=== PATIENT | female | born 1995 | race Caucasian/White ===

== ENCOUNTER 2023-01-28 15:37 | Inpatient (IN) | payer OTHER ==
--- NOTE | 2023-01-24 09:28 | P.HPOB ---
History of Present Illness H&P Date: 01/24/23 Chief Complaint: Induction secondary to chronic hypertension and diabetes This patient is a pleasant 28-year-old 1 para 0 female estimated date of confinement 02/03/2023 estimated gestational age 39 and one sevenths weeks who presents to labor and delivery for two-stage induction of labor secondary to insulin-dependent gestational diabetes and chronic hypertension. Patient's care has been complicated by diabetes and hypertension. She's been followed with maternal- medicine for Glucola regulation. I did place her on labetalol at approximately 13 weeks and she's had good control since that time. She's had testing and serial ultrasounds. Per recommendations plan now is to proceed with delivery. care is also complicated by maternal obesity. Review of Systems Genitourinary: Reports Menstruation: Reports amenorrhea Past Medical History Past Medical History: Hypertension Additional Past Medical History / Comment(s): Gestational diabetes and chronic hypertension. Polycystic ovary syndrome. Morbid obesity History of Any Multi-Drug Resistant Organisms: None Reported Past Surgical History: No Surgical Hx Reported Past Anesthesia/Blood Transfusion Reactions: No Reported Reaction Past Psychological History: Anxiety Smoking Status: Never smoker Past Alcohol Use History: None Reported Past Drug Use History: None Reported Medications and Allergies Home Medications Medication Instructions Recorded Confirmed Type Aspirin 81 mg PO DAILY 01/21/23 01/21/23 History Insulin Glargine [Lantus Vial] 25 unit SQ HS 01/21/23 01/21/23 History Labetalol [Trandate] 100 mg PO BID 01/21/23 01/21/23 History Vit No.179/Iron/Folic 1 each PO DAILY 01/21/23 01/21/23 History [ Tablet] Allergies Allergy/AdvReac Type Severity Reaction Status Date / Time No Known Allergies Allergy Verified 01/21/23 09:59 Exam - OBG Physical Exam Abdomen: bowel sounds normal, no diffuse tenderness, no bruit present, no guarding noted, no hepatomegaly, no splenomegaly, no mass Vulva: both: normal Vagina: normal moisture, no discharge Cervix: no lesion (Cervix in the office was closed and uneffaced), no discharge Uterus: enlarged Results labs show she is A negative, rubella immune, RPR nonreactive, HIV is nonreactive, hepatitis B and C were negative, group B strep was negative, Glucola was abnormal as well as her three-hour gtt. Most recent growth ultrasounds showed estimated weight of 7 lbs. 7 oz. Assessment and Plan Assessment: This is a pleasant 28-year-old 1 para 0 female 39 and one sevenths weeks gestation who presents to labor and delivery for two-stage induction of labor. Plan is Cervidil placement and induction of labor. Will monitor her blood glucoses closely during labor. Anticipate vaginal delivery. (1) 39 weeks gestation of Status: Acute Code(s): Z3A.39 - 39 WEEKS GESTATION OF SNOMED Code(s): 07611999 (2) Gestational diabetes Status: Acute Code(s): O24.419 - GESTATIONAL DIABETES MELLITUS IN , UNSP CONTROL SNOMED Code(s): 26221365 (3) Chronic hypertension Status: Acute Code(s): I10 - ESSENTIAL (PRIMARY) HYPERTENSION SNOMED Co de(s): 92331928 (4) Morbid obesity Status: Acute Code(s): E66.01 - MORBID (SEVERE) OBESITY DUE TO EXCESS CALORIES SNOMED Code(s): 033244817
[2023-01-28] MEDS ORDERED: DINOPROSTONE 10 MG INSERT.ER VAGINAL ONE (15:48)
[2023-01-28] MEDS ORDERED: NALBUPHINE 10 MG/ML (10 ML MDV) IV PRN (15:48)
[2023-01-28 20:45] LABS: Glucose,Whole Blood 104 mg/dL (70-110)
[2023-01-28] MEDS ORDERED: LABETALOL 100 MG TAB PO SCH (21:00)
[2023-01-29 03:46] LABS: Basophils % (A) 0 %; Eosinophils # (A) 0.2 k/uL (0-0.7); Eosinophils % (A) 1 %; HCT 37.1 % (34.0-46.0); HGB 12.5 gm/dL (11.4-16.0); Lymphocytes # (A) 2.1 k/uL (1.0-4.8); Lymphocytes % (A) 16 %; MCH 28.8 pg (25.0-35.0); MCHC 33.7 g/dL (31.0-37.0); MCV 85.5 fL (80.0-100.0); Mean Platelet Volume 9.7; Monocytes # (A) 0.6 k/uL (0-1.0); Monocytes % (A) 5 %; Neutrophils % (A) 76 %; Platelet Count 205 k/uL (150-450); RBC 4.34 m/uL (3.80-5.40); RDW 14.5 % (11.5-15.5); WBC 13.2 k/uL (3.8-10.6)
[2023-01-29] MEDS ORDERED: OXYTOCIN 10 UNIT/ML 1 ML VIAL IM PRN ×4 (05:48→11:19)
[2023-01-29] MEDS ORDERED: TERBUTALINE 1 MG/ML VIAL SQ PRN ×2 (05:48→07:36)
[2023-01-29] MEDS ORDERED: miSOPROStoL 200 MCG TAB PO PRN ×4 (05:48→11:19)
[2023-01-29] MEDS ORDERED: LACTATED RINGERS 1,000 ML IV SCH ×2 (05:48→07:45)
[2023-01-29] MEDS ORDERED: METHYLERGONOVINE 0.2 MG/ML 1 ML AMP IM PRN (05:48)
[2023-01-29] MEDS ORDERED: TRANEXAMIC 1,000 MG/100ML-NACL 1,000 MG in EMPTY BAG 1 BAG IV PRN ×4 (05:48→11:19)
[2023-01-29] MEDS ORDERED: OXYTOCIN 30 UNITS/500 ML NS 30 UNIT in SALINE 1 500ML.BAG IV SCH ×3 (05:48→13:15)
[2023-01-29] MEDS ORDERED: LIDOCAINE 0.5% (PF) 5 MG/ML (50 ML SDV) SQ PRN ×2 (05:48→07:36)
[2023-01-29] MEDS ORDERED: CARBOPROST TROMETHAMINE 250 MCG/ML 1 ML AMP IM PRN ×4 (05:48→11:19)
--- NOTE | 2023-01-29 06:28 | P.PN ---
Progress Note - Text Progress Note Date: 01/29/23 Patient was resting overnight. heart tones are category 1. Cervidil was removed this morning cervix is still closed and thick. I'm unable to proceed with artificial rupture membranes. Per discussion the office plan today is to proceed with delivery regardless due to the hypertension and gestational diabetes. Therefore, plan is to attempt Pitocin induction and if ineffective and then we plan to proceed with section for delivery later today. I discussed this clinical plan with the patient and her and we also discussed this in the office last week. They are agreeable we did discuss risks and benefits of section if necessary.
[2023-01-29 07:28] LABS: Glucose,Whole Blood 93 mg/dL (70-110)
[2023-01-29] MEDS ORDERED: CITRIC ACID-SODIUM CITRATE 15 ML CUP PO ONE ×2 (07:33→11:19)
[2023-01-29] MEDS ORDERED: ceFAZolin 3 GM in SODIUM CHLORIDE 0.9% 100 ML IVPB ONE ×2 (07:33→11:19)
[2023-01-29] MEDS ORDERED: LACTATED RINGERS 1,000 ML IV ONE (11:19)
[2023-01-29] MEDS ORDERED: ePHEDrine 50 MG/ML 1 ML VIAL ONE (12:13)
[2023-01-29] MEDS ORDERED: KETOROLAC 15 MG/ML 1 ML VIAL ONE (12:13)
[2023-01-29] MEDS ORDERED: ONDANSETRON 4 MG/2 ML VIAL ONE (12:13)
[2023-01-29] MEDS ORDERED: MORPHINE SULFATE (PF) 0.3 MG/0.3 ML SYR ONE (12:13)
[2023-01-29] MEDS ORDERED: OXYTOCIN 30 UNITS/500 ML NS BAG IV ONE (12:13)
[2023-01-29] MEDS ORDERED: NALBUPHINE 10 MG/ML (10 ML MDV) ONE (12:13)
[2023-01-29] MEDS ORDERED: SIMETHICONE 80 MG CHEWABLE PO PRN (13:04)
[2023-01-29] MEDS ORDERED: LANOLIN CREAM 5 GM TUBE TOPICAL PRN (13:04)
[2023-01-29] MEDS ORDERED: ZOLPIDEM 5 MG TAB PO PRN (13:04)
[2023-01-29] MEDS ORDERED: METOCLOPRAMIDE 5 MG/ML 2 ML VIAL IVP PRN (13:04)
[2023-01-29] MEDS ORDERED: NALOXONE 0.4 MG/ML 1 ML VIAL IV PRN (13:04)
[2023-01-29] MEDS ORDERED: diphenhydrAMINE 25 MG CAP PO PRN (13:04)
[2023-01-29] MEDS ORDERED: diphenhydrAMINE 50 MG/ML 1 ML VIAL IVP PRN (13:04)
[2023-01-29] MEDS ORDERED: ONDANSETRON 4 MG/2 ML VIAL IVP PRN (13:04)
[2023-01-29] MEDS: ACETAMINOPHEN TAB 500 MG TAB PO SCH (17:12)
--- NOTE | 2023-01-29 17:53 | P.OP ---
Date of Procedure: 01/29/23 Preoperative Diagnosis: #1: 39 and one sevenths week intrauterine . #2: Gestational diabetes. #3: Gestational hypertension/chronic hypertension. #4: Morbid obesity. #5: Failed induction of labor Postoperative Diagnosis: #1: Same. #2: macrosomia Procedure(s) Performed: Primary low transverse section Anesthesia: spinal Surgeon: Abrahan Good Returns Clerk #1: Alisha Vasquez Estimated Blood Loss (ml): 800 Pathology: other (Placenta) Condition: stable Disposition: floor Indications for Procedure: Please see dictated H&P for intimate details of this patient's admission. In brief summary this is a pleasant 28-year-old 1 para 0 female 39 and one sevenths weeks gestation who is admitted to labor and delivery for two-stage induction of labor secondary to insulin-dependent gestational diabetes, chronic hypertension and gestational hypertension. Patient was admitted last evening was about fingertip to 1 cm dilated has Cervidil placed. This was removed this morning and there was no significant cervical change. I was unable to proceed with artificial rupture of membranes. Patient was given Pitocin without any progression at that time, a patient centered well was done and after discussion we elected to proceed with primary section for delivery. Patient does understand this procedure and risks and risks of infection, bleeding, possible injury bowel, bladder, vessels, and other organs. All the patient's questions were answered and a written consent is obtained. Operative Findings: This is a vigorous viable male infant Apgars 8 and 9 delivery time is 1235 hrs. Infant's weight was 9 lbs. 7 oz. 4280 g. There is a nuchal cord 1. Description of Procedure: This patient has a Davidson catheter placed to straight drain. She is subsequently taken to the operating room where she is sat up and spinal anesthetic is administered without incident. With an adequate level of anesthesia she has the Pannas retractor placed and abdominal prep and drape. Appropriate timeout is done. Scalpel is then taken and a Pfannenstiel skin incision is made. A second scalpel is taken down the fascia and the fascia scored with a knife. Fascial incision is extended bilaterally using the Nguyen scissors. Fascia is then dissected off the rectus muscle separately. The peritoneum was identified and entered sharply. Peritoneal incision extended superior and inferior without difficulty. Bladder blade is then placed. The bladder peritoneum was then taken sharply off the lower uterine segment. Scalpels and taken a low transverse uterine incision is then made. Using a hemostat I into the uterine cavity bluntly and there is loss of a copious amount of clear fluid. Incision is then extended bluntly. 's head is then guided through the incision with fundal pressure. Mouth and nares are bulb suctioned. There is a nuchal cord which is loose and easily reduced. With more fundal pressure of delivery the rest this 's body. This is a vigorous viable female infant Apgars are 8 and 9 delivery time is 1235 hrs. After delivery of the the umbilical cord is doubly clamped and cut is handed off to the nurses in attendance. The placenta is then manually extracted intact. Uterus is then externalized and uterine incision demarcated with العلي clamps. Uterine incision then closed using 0 Vicryl running locked fashion 2 layers. Excellent hemostasis is noted. Excess fluid is removed from the abdomen and pelvis. The uterus, tubes, ovaries appear normal for term gestation. Uterus is placed back into the abdomen. Parietal peritoneum was then closed using 0 Vicryl running fashion. Rectus muscles reapproximated using 0 Vicryl interrupted fashion. Fascial incision is then closed using 0 PDS. Fascial incision is intact and hemostatic. Subcutaneous tissues and closed using a 3-0 Vicryl. Skin is and closed using liliam. All counts are correct 3. There are no complications. Infant and mother taken the birthing suite in satisfactory condition.
[2023-01-29] MEDS ORDERED: ceFAZolin 3 GM in SODIUM CHLORIDE 0.9% 100 ML IVPB SCH (20:00)
[2023-01-29] MEDS: SENNOSIDES-DOCUSATE SODIUM 1 EACH TAB PO SCH (20:12)
[2023-01-29] MEDS: KETOROLAC 15 MG/ML 1 ML VIAL IVP SCH (20:12)
[2023-01-29] MEDS: IBUPROFEN 600 MG TAB PO SCH (20:14)
[2023-01-29] MEDS ORDERED: Rhogam IMMUNE GLOBULIN 1,500 UNIT/1 ML IM ONE (21:45)
[2023-01-29] MEDS: LACTATED RINGERS 1,000 ML IV SCH (22:42)
[2023-01-30] MEDS: ACETAMINOPHEN TAB 500 MG TAB PO SCH ×4 (01:11→20:46)
[2023-01-30] MEDS: IBUPROFEN 600 MG TAB PO SCH ×3 (04:50→17:58)
--- NOTE | 2023-01-30 06:09 | P.PNOBGPC ---
Subjective - Subjective Patient reports: Reports appetite normal, Reports voiding normally, Reports pain well controlled, Reports ambulating normally : doing well Objective - Vital Signs Latest vital signs: Vital Signs Temp Pulse Resp BP Pulse Ox 01/30/23 04:00 97.8 F 91 16 113/76 97 01/30/23 00:00 97.5 F L 82 17 98/56 97 01/29/23 20:00 98.0 F 87 17 104/69 01/29/23 17:06 98.6 F 78 16 127/71 01/29/23 15:13 97.3 F L 80 16 116/59 98 01/29/23 14:35 80 18 121/60 99 01/29/23 14:05 79 18 124/60 98 01/29/23 13:50 74 18 124/60 99 01/29/23 13:35 73 18 122/57 97 01/29/23 13:20 77 18 130/88 97 01/29/23 13:05 98 F 78 18 128/66 100 01/29/23 13:04 98 Intake and Output 01/29/23 01/29/23 01/30/23 14:59 22:59 06:59 Intake Total 200 Output Total 300 400 Balance 200 -300 -400 Intake: Oral 200 Output: Urine 300 400 - Exam Lungs: bilateral: normal Chest: Normal S1, Normal S2 Extremities: Present: normal Abdomen: Present: normal appearance, soft. Absent: distention, tenderness Incision: Present: normal, dry, intact Uterus: Present: normal, firm Assessment and Plan Assessment: Postoperative day #1. Patient is resting without complaints. She did require straight catheterization for some urinary retention. This is thought to be secondary to the Duramorph spinal. Vital signs are stable she's afebrile. Uterus is firm nontender and her incision is intact and dry. CBC is pending. Patient is tolerating clear liquid diet. Plan today is to check a CBC, and sterile regular diet, encourage ambulation, allow the patient to shower, and restart her labetalol. (1) 39 weeks gestation of Current Visit: No Status: Acute Code(s): Z3A.39 - 39 WEEKS GESTATION OF SNOMED Code(s): 51865183 (2) Gestational diabetes Current Visit: No Status: Acute Code(s): O24.419 - GESTATIONAL DIABETES MELLITUS IN , UNSP CONTROL SNOMED Code(s): 46128541 (3) Chronic hypertension Current Visit: No Status: Acute Code(s): I10 - ESSENTIAL (PRIMARY) HYPERTENSION SNOMED Code(s): 40390099 (4) Morbid obesity Current Visit: No Status: Acute Code(s): E66.01 - MORBID (SEVERE) OBESITY DUE TO EXCESS CALORIES SNOMED Code(s): 519549173
--- NOTE | 2023-01-30 06:53 | P.PN ---
Progress Note - Text Progress Note Date: 01/30/23 Postoperative day 1 status post section under spinal anesthesia, and i ntrathecal morphine given for postoperative analgesia, patient doing well, there is no anesthesia related complications, Patient had no headache, vital signs stable , Assessment and plan= postop day 1 status post , doing well there is no anesthesia related complication.
[2023-01-30] MEDS: SENNOSIDES-DOCUSATE SODIUM 1 EACH TAB PO SCH ×2 (07:55→20:11)
[2023-01-30 08:08] LABS: Basophils % (A) 0 %; Eosinophils # (A) 0.2 k/uL (0-0.7); Eosinophils % (A) 1 %; HCT 33.8 % (34.0-46.0); HGB 11.3 gm/dL (11.4-16.0); Lymphocytes # (A) 1.7 k/uL (1.0-4.8); Lymphocytes % (A) 14 %; MCH 29.1 pg (25.0-35.0); MCHC 33.5 g/dL (31.0-37.0); MCV 86.9 fL (80.0-100.0); Mean Platelet Volume 9.9; Monocytes # (A) 0.5 k/uL (0-1.0); Monocytes % (A) 5 %; Neutrophils # (A) 9.3 k/uL (1.3-7.7); Neutrophils % (A) 78 %; Platelet Count 178 k/uL (150-450); RBC 3.88 m/uL (3.80-5.40); RDW 14.5 % (11.5-15.5); WBC 11.9 k/uL (3.8-10.6)
[2023-01-30] MEDS: LACTATED RINGERS 1,000 ML IV SCH ×2 (09:15→14:55)
[2023-01-30] MEDS: KETOROLAC 15 MG/ML 1 ML VIAL IVP SCH ×2 (09:16→14:52)
[2023-01-30] MEDS: LABETALOL 100 MG TAB PO SCH (20:11)
[2023-01-31] MEDS: IBUPROFEN 600 MG TAB PO SCH ×2 (00:39→06:19)
[2023-01-31 02:03] VITALS: RESP 16
[2023-01-31] MEDS: ACETAMINOPHEN TAB 500 MG TAB PO SCH (03:30)
--- NOTE | 2023-01-31 06:37 | P.PNOBGPC ---
Subjective - Subjective Patient reports: Reports appetite normal, Reports voiding normally, Reports pain well controlled, Reports ambulating normally : doing well Objective - Vital Signs Latest vital signs: Vital Signs Temp Pulse Resp BP Pulse Ox 01/31/23 00:30 98.0 F 90 16 118/72 98 01/30/23 20:00 105 H 141/85 01/30/23 16:00 97.8 F 89 18 118/84 98 01/30/23 12:00 97.6 F 95 18 116/77 98 01/30/23 08:00 97.9 F 94 18 114/76 98 Intake and Output 01/30/23 01/30/23 01/31/23 14:59 22:59 06:59 Output Total 1200 Balance -1200 Output: Urine 1200 Other: Voiding Method Toilet Toilet # Voids 1 1 - Exam Lungs: bilateral: normal Chest: Normal S1, Normal S2 Extremities: Present: normal Abdomen: Present: normal appearance, soft. Absent: distention, tenderness Incision: Present: normal, dry, intact Uterus: Present: normal, firm - Labs Labs: Abnormal Lab Results - Last 24 Hours (Table) 01/30/23 Range/Units 07:44 WBC 11.9 H (3.8-10.6) k/uL Hgb 11.3 L (11.4-16.0) gm/dL Hct 33.8 L (34.0-46.0) % Neutrophils # 9.3 H (1.3-7.7) k/uL Assessment and Plan Assessment: Postoperative day #2. Patient is resting without complaints and wishes to go home. Vital signs are stable she's afebrile. Uterus is firm nontender she's having normal lochia. Incision is intact and dry. CBC yesterday was normal. Patient is ambulating, urinating, tolerating regular diet. Plan today is to continue routine care discharge home later today. (1) 39 weeks gestation of Current Visit: No Status: Acute Code(s): Z3A.39 - 39 WEEKS GESTATION OF SNOMED Code(s): 38910618 (2) Gestational diabetes Current Visit: No Status: Acute Code(s): O24.419 - GESTATIONAL DIABETES MELLITUS IN , UNSP CONTROL SNOMED Code(s): 97782098 (3) Chronic hypertension Current Visit: No Status: Acute Code(s): I10 - ESSENTIAL (PRIMARY) HYPERTENSION SNOMED Code(s): 74827386 (4) Morbid obesity Current Visit: No Status: Acute Code(s): E66.01 - MORBID (SEVERE) OBESITY DUE TO EXCESS CALORIES SNOMED Code(s): 736784865
--- NOTE | 2023-01-31 06:43 | P.DS ---
Providers Date of admission: 01/28/23 15:37 Expected date of discharge: 01/31/23 Attending physician: Abrahan Good Primary care physician: Stated None - Discharge Diagnosis(es) (1) 39 weeks gestation of Current Visit: No Status: Acute (2) Gestational diabetes Current Visit: No Status: Acute (3) Chronic hypertension Current Visit: No Status: Acute (4) Morbid obesity Current Visit: No Status: Acute Hospital Course: Please see dictated H&P and operative note on this patient's admission. Brief summary this is a pleasant 28-year-old 1 para 0 female estimated gestational age 39 and one sevenths weeks gestation who is admitted to labor and delivery for induction of labor secondary to gestational hypertension and gestational diabetes. Patient is admitted she has failed induction of labor subsequent was on to have a primary low transverse section for a viable female . Please see dictated delivery note. day #2 patient was doing well felt to be stable for discharge home follow up with me in 1 week. Procedures: Primary low transverse section Patient Condition at Discharge: Good Plan - Discharge Summary New Discharge Prescriptions: New Ibuprofen [Motrin] 600 mg PO Q6H #40 tab oxyCODONE HCL [OxyIR] 5 mg PO Q4HR PRN #18 tab PRN Reason: Pain Scale 4 - 6 Continue Labetalol [Trandate] 100 mg PO BID No Action Vit No.179/Iron/Folic [ Tablet] 1 each PO DAILY Insulin Glargine [Lantus Vial] 25 unit SQ HS Aspirin 81 mg PO DAILY Discharge Medication List Aspirin 81 mg PO DAILY 01/21/23 [History] Insulin Glargine [Lantus Vial] 25 unit SQ HS 01/21/23 [History] Labetalol [Trandate] 100 mg PO BID 01/21/23 [History] Vit No.179/Iron/Folic [ Tablet] 1 each PO DAILY 01/21/23 [History] Ibuprofen [Motrin] 600 mg PO Q6H #40 tab 01/31/23 [Rx] oxyCODONE HCL [OxyIR] 5 mg PO Q4HR PRN #18 tab 01/31/23 [Rx] Follow up Appointment(s)/Referral(s): Abrahan Good MD [STAFF PHYSICIAN] - 03/18/23 10:30 am (Post-Op appointment scheduled for February 07 at 9:00AM) Patient Instructions/Handouts: (DC) Activity/Diet/Wound Care/Special Instructions: No heavy lifting or strenuous activity for 6 weeks. No intercourse or anything per vagina for 6 weeks. Please call if any fever, chills, excessive vaginal bleeding, and/or abdominal pain. Discharge Disposition: HOME SELF-CARE
[2023-01-31 08:35] VITALS: BP 110/63; PULSE 87; TEMP 97.9
[2023-01-31] MEDS: LABETALOL 100 MG TAB PO SCH (08:38)
[2023-01-31] MEDS: SENNOSIDES-DOCUSATE SODIUM 1 EACH TAB PO SCH (08:38)
== END 2023-01-31 11:50 | disposition home or self-care (01) | DRG 787 ==
LOC: MERGE 15:37 → 4FBP 15:37
PROVIDERS: ADMIT Obstetrics & Gynecology; ATTEND Obstetrics & Gynecology
PROC: 3E0DXGC Introduction of Other Therapeutic Substance into Mouth and Pharynx, External Approach (ICD-10-PCS; 2023-01-28)
PROC: 3E033VJ Introduction of Other Hormone into Peripheral Vein, Percutaneous Approach (ICD-10-PCS; 2023-01-28)
PROC: 3E0P7VZ Introduction of Hormone into Female Reproductive, Via Natural or Artificial Opening (ICD-10-PCS; 2023-01-28)
PROC: 10D00Z1 Extraction of Products of Conception, Low, Open Approach (ICD-10-PCS; principal; 2023-01-29 12:13)
DX: O24.424 Gestational diabetes mellitus in childbirth, insulin controlled (principal); O10.92 Unspecified pre-existing hypertension complicating childbirth; O36.63X0 Maternal care for excessive fetal growth, third trimester, not applicable or unspecified; O69.81X0 Labor and delivery complicated by cord around neck, without compression, not applicable or unspecified; O99.214 Obesity complicating childbirth; O99.344 Other mental disorders complicating childbirth; F41.9 Anxiety disorder, unspecified; E66.01 Morbid (severe) obesity due to excess calories; Z37.0 Single live birth; Z3A.39 39 weeks gestation of pregnancy; Z79.82 Long term (current) use of aspirin; Z28.310 Unvaccinated for COVID-19; Z28.21 Immunization not carried out because of patient refusal; Z88.2 Allergy status to sulfonamides; Z79.4 Long term (current) use of insulin; O61.0 Failed medical induction of labor
CPT/HCPCS: 85025; 85461; 86850; 86900; 86901; 88307